=== PATIENT | female | born 1955 | race Caucasian/White ===

== ENCOUNTER 2017-02-09 10:00 | Outpatient (CLI) | payer OTHER ==
[~2017-02-09] VITALS: Ht 160 cm; Wt 74.5 kg
[~2017-02-09 10:00] MED LIST: BUS5 PO; CELE200C PO; HYD25 GTB; LAMO200T18 PO; LEVO75TA65 PO; LOSA50TA6 PO; OXYC5CAP17 PO; PARO40TA48 PO
[2017-02-09 10:15] VITALS: BP 120/75; PULSE 95; RESP 18; Ht 160 cm; Wt 74.5 kg
[2017-02-09] MEDS ORDERED: ARIP2TAB8 PO (10:36)
[2017-02-09] MEDS ORDERED: DICL50TA11 PO (10:36)
[2017-02-09] MEDS ORDERED: TERA2CAP3 PO (10:36)
[2017-02-09] MEDS ORDERED: CITA-104 PO (10:36)
[2017-02-09] MEDS ORDERED: TELM80TA4 PO (10:36)
--- NOTE | 2017-02-09 18:20 | CONS ---
[facility] INITIAL OUTPATIENT CONSULTATION NOTE DATE OF CONSULTATION: 02/09/2017 PLACE OF SERVICE: [facility] ASSESSMENT AND PLAN: A very pleasant but unfortunate 61-year-old lady with longstanding history of hepatitis C, who was also incidentally discovered to have a 1 cm gallbladder polyp, without any associated symptoms. Despite presence of hepatitis C, the size of the gallbladder polyp is small enough that I do not see any indication for acute surgical intervention. She will certainly have adequate followup for her hepatitis C and with those ultrasounds we can also monitor the size of this polyp. The literature is very clear that polyps less than 1 cm are extremely rare to transform into a malignancy. More than a 2 cm polyp would indicate surgical resection and the polyps between 1 and 2 cm are somewhat a candidate for either observation or surgical intervention. At this time, I do not believe that the patient requires surgery. I explained all the above in detail with the patient and answered all her questions to the best of my ability. I believe that she understood and agreed with the plans. With above assessment, I recommend the followin. Continued hepatitis C surveillance of liver with forwarding of the images of the new ultrasounds to my office for me to review, and I will ask my office to please keep the patient informed of any new decisions based on followup images. 2. She can follow up with us as needed. 3. Follow up with regular physician. 4. Stay in close contact with Dr. Carrion regarding her hepatitis C care. Thank you again for allowing us to participate in the care of this very pleasant lady and I am certain her wonderful family. If there are any questions , please feel free to contact me at [phone]. UPDATED CLINICAL SUMMARY: A very pleasant 61-year-old lady with a few comorbid issues including BMI 29.1 as well as chronic hepatitis C, presenting with incidentally discovered less than 1 cm gallbladder polyp. COMORBIDITIES: 1. Chronic hepatitis C diagnosed in 09/2016, but likely present since 1976 when she was told that she has non-A, non-B, hepatitis after blood transfusion. At that time, she had been hospitalized for pulmonary embolism and hematuria. In the , she was told that she has hepatitis C. Two liver biopsies were done, one in 1995 at [facility] and another one in 2005 at [facility]. In 2005, she was told that she has stage F1 or fibrosis 1 in her liver. Fibroscan done 12/02/2016 showed F0 to F1. In 11/2016, her AST and ALT were 50 and 52, respectively with a platelet count of 259. 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 3. Posttraumatic stress disorder. 4. Hypothyroidism. 5. Hypertension. 6. Depression. 7. Uncomplicated asthma. 8. Previous history of myocardial infarction. 9. Malignant neoplasm of the left breast, status post bilateral mastectomy in 2006, followed by chemotherapy and radiation complicated by lymphedema of left arm. 10. Arthritis with positive rheumatoid factor, C3 80 and C34 4 per rheumatology. 11. Several knee surgeries. 12. Appendectomy in 1974. 13. Abdominal hysterectomy 2007. 14. Vein stripping 2007. 15. AP repair in 2004. HISTORY OF PRESENT ILLNESS: The patient is a very pleasant 61-year-old lady with above-mentioned comorbidities, whom we were kindly asked to consult regarding management of her gallbladder polyp. She does not report any abdominal pain and this was incidentally discovered during the routine surveillance that she has for hepatitis C. She has never had any biliary complaints and no difficulties with admission to the hospital or emergency room that were pertaining to her gallbladder. Appetite has been good, and she does not report any changes in her bowel or bladder habits, changes in her weight, blood in the stool or urine or any other concerning signs. ALLERGIES: NO KNOWN DRUG ALLERGIES. HOME MEDICATIONS: Include: 1. Abilify. 2. BuSpar. 3. Citalopram. 4. Diclofenac. 5. Hydrochlorothiazide. 6. Levothyroxine. 7. Telmisartan. 8. Terazosin. SOCIAL HISTORY: The patient works in the nursing field. She has 4 children. She was born in [place], [place]. She is currently . She does not report any smoking. She drank heavily in 2007 for 2 years and then quit. No history of intravenous drug use. FAMILY HISTORY: The patient's mother is from malignant neoplasm of the colon. No family history of liver disease. REVIEW OF SYSTEMS: Other than the above-mentioned, there are no other pertinent positives or pertinent negatives in a complete 14-point review of systems. PHYSICAL EXAMINATION: GENERAL: The patient appears to be a very pleasant lady of non- descent, appearing stated age, sitting in a chair comfortably and in no acute distress. BMI is 29.1. VITAL SIGNS: Temperature 98.1, blood pressure 120/75, pulse 95, respiratory rate 18, pulse oximetry 97% on room air. HEENT: Normocephalic and atraumatic. Extraocular muscles and hearing are grossly intact bilaterally and symmetrically. Sclerae are nonicteric. Oral cavity is clear; oral mucosa appeared to be pink and moist. Dentition: fair to poor. NECK: Supple. There is no lymphadenopathy or JVD. There is no submental, submandibular or supraclavicular lymphadenopathy. CHEST: Rises symmetrically with each breath; patient is breathing comfortably. There are no audible wheezes, rales or rhonchi on the gross exam. HEART: Pulse is regular and palpable on the right wrist. Capillary refill was normal. Carotid pulses are palpable bilaterally and symmetrically in the neck. EXTREMITIES: Lower extremities contain no pitting edema around the ankles bilaterally and symmetrically. ABDOMEN: Abdomen is soft, nontender and nondistended. There are no peritoneal signs or guarding. No evidence of ascites, organomegaly, caput medusae, engorged subcutaneous veins, or other abnormalities. SKIN: Appears to be pink and feels warm to touch. NEUROLOGIC: Awake, alert, and follows commands appropriately. LABORATORY DATA: Dated 11/2016, normal electrolytes, CO2 of 31, albumin 4.0, platelets 259. Hepatitis B core antibody nonreactive, hepatitis B surface antibody reactive, hepatitis A antibody nonreactive, HIV test nonreactive, hepatitis C viral genotype 1A. IMAGING: The patient underwent an ultrasound of the abdomen and pelvis 2016 that showed a 1 cm gallbladder polyp. Note that I personally reviewed all the available pertinent images and I agree in general with their reported findings. Dictated By: MICHAEL ROBERTS/NTS Conf#: [id number] DID#: [id number] CC: NICO JIMENEZ MD; JOHN CARRION MD;*End* [facility]
== END 2017-02-09 16:42 | disposition home or self-care (01) ==
LOC: HPC 10:00
PROVIDERS: ATTEND Transplant Surgery
DX: K82.4 Cholesterolosis of gallbladder (principal); I10 Essential (primary) hypertension; E03.9 Hypothyroidism, unspecified; B19.20 Unspecified viral hepatitis C without hepatic coma; I25.2 Old myocardial infarction; F32.9 Major depressive disorder, single episode, unspecified; Z85.3 Personal history of malignant neoplasm of breast; Z90.13 Acquired absence of bilateral breasts and nipples
CPT/HCPCS: G0463

== ENCOUNTER 2017-07-23 14:49 | Inpatient (IN) | payer OTHER ==
[~2017-07-23] VITALS: Ht 160 cm; Wt 87.9 kg
[~2017-07-23 14:49] MED LIST changes: +ARIP2TAB8 PO; -CELE200C PO; +CITA-104 PO; +DICL50TA11 PO; -HYD25 GTB; +HYDR25TA6 PO; -LAMO200T18 PO; -LOSA50TA6 PO; -OXYC5CAP17 PO; -PARO40TA48 PO; +TELM80TA4 PO; +TERA2CAP3 PO
[2017-07-23 15:20] VITALS: BP 118/63; PULSE 86; RESP 18
[2017-07-23 15:39] VITALS: Ht 160 cm; Wt 87.9 kg
[2017-07-23] MEDS ORDERED: BISACODYL (EC) 5 MG TAB PO PRN (16:00)
[2017-07-23] MEDS ORDERED: BARIUM SULF 2% 450 ML BTL (BERRY SMOOTHIE) PO ONE (16:00)
[2017-07-23] MEDS ORDERED: LORAZEPAM 0.5 MG TAB PO PRN (16:00)
[2017-07-23] MEDS ORDERED: ONDANSETRON 4 MG INJ IV PRN (16:00)
[2017-07-23] MEDS ORDERED: ACETAMINOPHEN 325 MG TAB PO PRN (16:00)
[2017-07-23] MEDS ORDERED: hydrALAzine 20 MG INJ IV PRN (16:00)
[2017-07-23] MEDS ORDERED: CEFTRIAXONE 1 GM/50 ML (PMX) 50 ML IVPB SCH (16:00)
[2017-07-23] MEDS ORDERED: NACL 0.9% 3 ML SYG IV SCH (16:00)
[2017-07-23] MEDS ORDERED: HYDROCODONE/APAP (5/325) TAB PO PRN (16:00)
--- NOTE | 2017-07-23 16:20 | HP ---
Date/Time of Note Date/Time of Note DATE: 07/23/17 TIME: 16:14 Assessment/Plan VTE Prophylaxis VTE Prophylaxis Intervention: SCD's Assessment/Plan Chief Complaint/Hosp Course o: Physical exam General: Patient is laying in bed and answers questions appropriately Mentation: Patient is alert and oriented 4, Head: Normocephalic atraumatic Eyes: EOMI, pupils reactive to light Neck: Supple, nontender, midline Respiratory: Clear to auscultation bilaterally Cardiovascular: regular rate, no obvious murmurs Gastrointestinal: non-tender to palpation, bowel sounds heard. mildly distended Neurological: Moves all extremities spontaneously Skin: No new skin lesions Patient is a 62-year-old female with a past medical history of PTSD and depression as well as Deja-Danlos who presented at another facility with hyponatremia after becoming nausea vomiting secondary to Bactrim Keflex and ministration Assessment and plan Hyponatremia -Stat repeat labs, outside facility had sodium of 122, will repeat labs and if low will slowly replete, -Side effect of Bactrim is hyponatremia, however cannot rule out other causes -We will order urine studies for hyponatremia in anticipation of low-sodium -If patient's sodium less than 125, upgrade to telemetry Weakness -Likely secondary to repeated diarrhea and nausea and GI issues likely secondary to hyponatremia -Monitor, PT OT Nausea vomiting -Questionable GI infectious source versus Bactrim side effect -Zofran as needed -Antibiotics for questionable GI issues Abdominal distention -Questionable related to GI infectious source -CT scan ordered PTSD and depression -Restart home medications Hypertension -Continue patient's blood pressure medication and as needed medications -Hydrochlorothiazide has electrolyte abnormalities including hyponatremia, will change to amlodipine, however will slowly titrate up. Problems: HPI/ROS Admit Date/Time Admit Date/Time Jul 23, 2017 at 14:56 Hx of Present Illness Patient is a 62-year-old female with past medical history of Deja- Danlos, PTSD with depression and hypothyroidism who presents to [facility] as a transfer from another facility where she originally presented 5 days ago in the ED with a vaginal abscess which was drained and patient was put on Bactrim and Keflex. Immediately after patient filled her Bactrim she began to feel nauseated and had muscle weakness and stiffness. Patient felt increasingly worse and return to the ED and was subsequently found to be hyponatremic at 122 at the other facility and was transferred over to [facility] due to insurance reasons. Currently at [facility] patient is alert and oriented 4, however mildly confused at times due to recent Benadryl and Dilaudid administration. Patient is a good historian and is able to explain all her symptoms and issues. Patient still complains of mild stomach distention as well as diarrhea and overall weakness. Patient denies chest pain, headache, shortness of breath. PMH: PTSD, depression, hypothyroidism, chronic pain, chronic bradycardia, deja danlos, hypertension, history of breast cancer, questionable asthma Meds: Abilify, BuSpar, citalopram, hydrochlorothiazide, levothyroxine, telmisartan, terazosin Exam/Review of Systems Vital Signs Vitals Vital Signs Date Time Temp Pulse Resp B/P Pulse Ox O2 Delivery O2 Flow Rate FiO2 07/23/17 15:20 98.9 86 18 118/63 97 Room Air NICO ARGUETA Jul 23, 2017 16:20
[2017-07-23 16:41] LABS: BASOPHILS % 0.5 % (0.0-2.0); EOSINOPHILS # 0.1 10^3/ul (0.0-0.5); EOSINOPHILS % 2.4 % (0.0-7.0); HEMATOCRIT 30.3 % (37.0-47.0); HEMOGLOBIN 10.8 g/dl (12.0-16.0); LYMPHOCYTES % 25.4 % (15.0-51.0); MEAN CORPUSCULAR HEMOGLOBIN 30.4 pg (29.0-33.0); MEAN CORPUSCULAR HGB CONC 35.6 g/dl (32.0-37.0); MEAN CORPUSCULAR VOLUME 85.4 fl (82.0-101.0); MEAN PLATELET VOLUME 9.6 fl (7.4-10.4); MONOCYTE # 0.5 10^3/ul (0.3-0.9); NEUTROPHIL # 2.2 10^3/ul (1.6-7.5); NEUTROPHILS % 58.4 % (39.0-77.0); PLATELET COUNT 165 10^3/UL (140-415); RED BLOOD COUNT 3.55 10^6/ul (4.20-5.40); RED CELL DISTRIBUTION WIDTH 11.6 % (11.5-14.5); WHITE BLOOD COUNT 3.8 10^3/ul (4.8-10.8)
[2017-07-23] MEDS: oxyCODONE 5 MG TAB PO PRN ×2 (17:01→21:14)
[2017-07-23 17:10] LABS: ALBUMIN 3.8 g/dl (3.3-4.9); ALBUMIN/GLOBULIN RATIO 1.31; BILIRUBIN,INDIRECT 0.4 mg/dl (0-1.1); BILIRUBIN,TOTAL 0.4 mg/dl (0.2-1.3); CALCIUM 8.5 mg/dl (8.4-10.2); CREATININE 0.95 mg/dl (0.44-1.00); POTASSIUM 3.8 mmol/L (3.5-5.1); TOTAL PROTEIN 6.7 g/dl (6.1-8.1)
[2017-07-23] MEDS: SOD CHLORIDE 0.9% 1,000 ML IV SCH (18:29)
[2017-07-23 19:39] VITALS: BP 107/65; RESP 22
[2017-07-23] MEDS: morphine 2 MG INJ IV PRN (19:43)
[2017-07-23] MEDS ORDERED: BUSPIRONE 10 MG TAB PO SCH (21:00)
[2017-07-23] MEDS ORDERED: TERAZOSIN 2 MG CAP PO SCH (21:00)
[2017-07-23] MEDS: BUSPIRONE 5 MG TAB PO SCH (21:08)
[2017-07-24 01:59] LABS: ALBUMIN 3.5 g/dl (3.3-4.9); CALCIUM 8.4 mg/dl (8.4-10.2); CREATININE 0.91 mg/dl (0.44-1.00); PHOSPHORUS 2.7 mg/dl (2.5-4.9)
[2017-07-24 02:00] VITALS: BP 139/74; RESP 20
[2017-07-24] MEDS: morphine 2 MG INJ IV PRN ×4 (02:14→22:02)
[2017-07-24 03:07] LABS: ADD UMIC NO; UR ASCORBIC ACID NEGATIVE (NEGATIVE); UR BILIRUBIN (Dip) NEGATIVE (NEGATIVE); UR BLOOD (Dip) NEGATIVE (NEGATIVE); UR CLARITY CLEAR (CLEAR); UR COLOR STRAW (YELLOW); UR GLUCOSE (Dip) NEGATIVE (NEGATIVE); UR KETONES (Dip) NEGATIVE (NEGATIVE); UR LEUKOCYTE ESTERASE (Dip) NEGATIVE Leu/ul (NEGATIVE); UR NITRITE (Dip) NEGATIVE (NEGATIVE); UR SPECIFIC GRAVITY (Dip) 1.003 (1.003-1.030); UR TOTAL PROTEIN (Dip) NEGATIVE (NEGATIVE); UR UROBILINOGEN (Dip) NEGATIVE (NEGATIVE)
[2017-07-24 03:21] LABS: OPIATES Negative (NEGATIVE)
[2017-07-24 03:29] LABS: POTASSIUM,URINE RANDOM < 9.7 mmol/L (25-125)
[2017-07-24 03:30] LABS: BARBITURATES Negative (NEGATIVE); BENZODIAZEPINES Negative (NEGATIVE); CANNABINOIDS Negative (NEGATIVE); COCAINE Negative (NEGATIVE)
[2017-07-24] MEDS: PANTOPRAZOLE (EC) 40 MG TAB PO SCH (05:36)
[2017-07-24] MEDS: LEVOTHYROXINE 75 MCG TAB PO SCH (05:36)
[2017-07-24 05:43] LABS: BASOPHILS % 0.7 % (0.0-2.0); EOSINOPHILS # 0.1 10^3/ul (0.0-0.5); EOSINOPHILS % 4.6 % (0.0-7.0); HEMATOCRIT 30.5 % (37.0-47.0); HEMOGLOBIN 10.7 g/dl (12.0-16.0); LYMPHOCYTES # 0.9 10^3/ul (0.8-2.9); LYMPHOCYTES % 30.8 % (15.0-51.0); MEAN CORPUSCULAR HEMOGLOBIN 30.3 pg (29.0-33.0); MEAN CORPUSCULAR HGB CONC 35.1 g/dl (32.0-37.0); MEAN CORPUSCULAR VOLUME 86.4 fl (82.0-101.0); MONOCYTE # 0.4 10^3/ul (0.3-0.9); MONOCYTES % 13.6 % (0.0-11.0); NEUTROPHIL # 1.5 10^3/ul (1.6-7.5); PLATELET COUNT 171 10^3/UL (140-415); RED BLOOD COUNT 3.53 10^6/ul (4.20-5.40); RED CELL DISTRIBUTION WIDTH 11.7 % (11.5-14.5)
[2017-07-24 06:01] LABS: IRON 116 ug/dl (35-150)
[2017-07-24 06:07] LABS: ALBUMIN 3.3 g/dl (3.3-4.9); CALCIUM 8.6 mg/dl (8.4-10.2); CREATININE 0.89 mg/dl (0.44-1.00); PHOSPHORUS 2.5 mg/dl (2.5-4.9); POTASSIUM 4.1 mmol/L (3.5-5.1)
[2017-07-24 06:11] LABS: ALBUMIN 3.3 g/dl (3.3-4.9); ALBUMIN/GLOBULIN RATIO 1.1; BILIRUBIN,INDIRECT 0.4 mg/dl (0-1.1); BILIRUBIN,TOTAL 0.4 mg/dl (0.2-1.3); CALCIUM 8.6 mg/dl (8.4-10.2); CREATININE 0.91 mg/dl (0.44-1.00); MAGNESIUM 1.4 mg/dl (1.7-2.5); TOTAL IRON BINDING CAPACITY 297 ug/dl (241-421); TOTAL PROTEIN 6.3 g/dl (6.1-8.1)
[2017-07-24 07:57] VITALS: BP 111/66; RESP 18
[2017-07-24] MEDS ORDERED: ARIPIPRAZOLE 2 MG TAB PO SCH ×3 (08:00→21:00)
[2017-07-24] MEDS: BUSPIRONE 5 MG TAB PO SCH ×2 (08:14→21:15)
[2017-07-24] MEDS: TERAZOSIN 2 MG CAP PO SCH ×2 (08:14→21:15)
[2017-07-24] MEDS: CITALOPRAM 20 MG TAB PO SCH (08:14)
[2017-07-24] MEDS: LOSARTAN 50 MG TAB PO SCH (08:15)
[2017-07-24] MEDS ORDERED: MAGNESIUM SULFATE 3 GM in DEXTROSE 5% 100 ML IVPB ONE (09:00)
--- NOTE | 2017-07-24 09:23 | RADRPT ---
PROCEDURE: CT abdomen and pelvis without contrast. CLINICAL INDICATION: Abdominal distension, nausea, vomiting, diarrhea, abdominal pressure TECHNIQUE: CT of the abdomen and pelvis without intravenous contrast was performed on a multidetect or CT scanner, with multiplanar reformats. Oral contrast was administered only. One or more of the following dose reduction techniques were used: Automated exposure control, adjustment in mA and / or kV according to patient size, use of iterative reconstructive technique. CTDIvol = 15 mGy and DLP = 844 mGy-cm. DICOM images are available. COMPARISON: None available FINDINGS: There is a small to moderate hiatal hernia. The liver, gallbladder, spleen, pancreas, adrenal glands and kidneys appear unremarkable on this non contrast evaluation. No biliary dilation is seen. The uterus is not visualized compatible with hysterectomy. Clips are present in the right pelvis. Ur inary bladder appears unremarkable. No free air, significant free fluid or focal fluid collection is identified in the abdomen or pelvis . Small and large bowel loops appear unremarkable. The appendix is not visualized. No findings of appendicitis are identified. No abdominal or pelvic lymphadenopathy is seen. The abdominal aorta is normal in caliber. Atheroscl erotic calcifications are noted. Spondylosis with grade 1 anterolisthesis at L4-5, and chronic lower bilateral rib fractures are note d. IMPRESSION: 1. No acute abnormality identified in the abdomen or pelvis. 2. Small moderate hiatal hernia. 3. Status post hysterectomy. RPTAT: HH .Harvey Contreras MD, MD Date Time Electronically viewed and signed by .Harvey Contreras MD, on 07/24/2017 09:22 .O/
[2017-07-24] MEDS ORDERED: MAGNESIUM SULFATE 2 GM/50 ML 50 ML IVPB ONE (10:30)
--- NOTE | 2017-07-24 11:15 | PN ---
Date/Time of Note Date/Time of Note DATE: 07/24/17 TIME: 11:09 Assessment/Plan VTE Prophylaxis VTE Prophylaxis Intervention: ambulation, SCD's Lines/Catheters IV Catheter Type (from Nrsg): Peripheral IV Urinary Cath still in place: No Assessment/Plan Chief Complaint/Hosp Course s: 07.24 patient not confused at all, sitter unncessary, still has mod-severe soreness/strain in her upper thigh o: Physical exam General: Patient is laying in bed and answers questions appropriately Mentation: Patient is alert and oriented 4, Head: Normocephalic atraumatic Eyes: EOMI, pupils reactive to light Neck: Supple, nontender, midline Respiratory: Clear to auscultation bilaterally Cardiovascular: regular rate, no obvious murmurs Gastrointestinal: non-tender to palpation, bowel sounds heard. mildly distended Neurological: Moves all extremities spontaneously Skin: No new skin lesions Patient is a 62-year-old female with a past medical history of PTSD and depression as well as Deja-Danlos who presented at another facility with hyponatremia after becoming nausea vomiting secondary to Bactrim Keflex and ministration Assessment and plan Hyponatremia -improving at a good rate, 122 at outside facility to 130 this AM, safe limits -slow hydration -bactrim still likely cause, combined with other meds such as HCTZ, holding HCTZ as well, patient's BP is well controlled and patient was taking HCTZ for chronic lymphedema, which has not helped, no need to HCTZ. Weakness -Likely secondary to repeated diarrhea and nausea and GI issues likely secondary to hyponatremia -Monitor, PT OT Muscle soreness/strain -upper thigh -possibly secondary to multiple days of distress -monitor and will try robaxin Nausea vomiting -Questionable GI infectious source versus Bactrim side effect -Zofran as needed -Antibiotics given initially, but stopped IV ceftriaxone, PO meds labial abscess -s/p I and D, was on bactrim/keflex -switching to doxycycline oral due to possible bactrim side effects Abdominal distention -Questionable related to GI infectious source -very mild distention -hiatal hernia noted on CT, otherwise unremarkable -monitor PTSD and depression -Restart home medications Hypertension -Continue patient's blood pressure medication and as needed medications -Hydrochlorothiazide will be dc'd. electrolyte issues as well as patient not using it for BP issues DISPO -PT/OT to eval difficulty walking 2/2 leg strain/pain -monitor if robaxin helping -monitor Na -DC to f/u with family med/front desk coordinator onc for drained labial abscess Problems: Exam/Review of Systems Vital Signs Vitals Vital Signs Date Time Temp Pulse Resp B/P Pulse Ox O2 Delivery O2 Flow Rate FiO2 07/24/17 07:57 98.0 74 18 111/66 96 07/23/17 15:20 Room Air Intake and Output 07/23/17 07/23/17 07/24/17 14:59 22:59 06:59 Intake Total 400 ml 440 ml Balance 400 ml 440 ml Results Result Diagram: 07/24/17 0443 07/24/17 0443 Results 24 hrs Laboratory Tests Test 07/23/17 16:30 07/23/17 16:32 07/23/17 17:20 07/24/17 00:40 Sodium Level 125 L 127 L Potassium Level 3.8 4.0 Chloride Level 95 L 96 L Carbon Dioxide Level 19 L 23 Anion Gap 15 12 Blood Urea Nitrogen 8 6 L Creatinine 0.95 0.91 Glucose Level 77 85 Osmolality 254 L Calcium Level 8.5 8.4 Total Bilirubin 0.4 Direct Bilirubin 0.00 Indirect Bilirubin 0.4 Aspartate Amino Transf (AST/SGOT) 54 H Alanine Aminotransferase (ALT/SGPT) 58 Alkaline Phosphatase 50 Total Protein 6.7 Albumin 3.8 3.5 Globulin 2.90 Albumin/Globulin Ratio 1.31 White Blood Count 3.8 L Red Blood Count 3.55 L Hemoglobin 10.8 L Hematocrit 30.3 L Mean Corpuscular Volume 85.4 Mean Corpuscular Hemoglobin 30.4 Mean Corpuscular Hemoglobin Concent 35.6 Red Cell Distribution Width 11.6 Platelet Count 165 Mean Platelet Volume 9.6 Neutrophils % 58.4 Lymphocytes % 25.4 Monocytes % 13.0 H Eosinophils % 2.4 Basophils % 0.5 Nucleated Red Blood Cells % 0.0 Neutrophils # 2.2 Lymphocytes # 1.0 Monocytes # 0.5 Eosinophils # 0.1 Basophils # 0.0 Nucleated Red Blood Cells # 0.0 Urine Color STRAW Urine Clarity CLEAR Urine pH 7.0 Urine Specific Geismar 1.003 Urine Ketones NEGATIVE Urine Nitrite NEGATIVE Urine Bilirubin NEGATIVE Urine Urobilinogen NEGATIVE Urine Leukocyte Esterase NEGATIVE Urine Hemoglobin NEGATIVE Urine Osmolality 126 L Urine Random Creatinine 23.28 Urine Random Sodium 41 Urine Random Potassium < 9.7 L Urine Glucose NEGATIVE Urine Total Protein NEGATIVE Urine Opiates Screen Negative Urine Barbiturates Negative Urine Amphetamines Screen Negative Urine Benzodiazepines Screen Negative Urine Cocaine Screen Negative Urine Cannabinoids Negative Phosphorus Level 2.7 Test 07/24/17 04:43 White Blood Count 3.0 #L Red Blood Count 3.53 L Hemoglobin 10.7 L Hematocrit 30.5 L Mean Corpuscular Volume 86.4 Mean Corpuscular Hemoglobin 30.3 Mean Corpuscular Hemoglobin Concent 35.1 Red Cell Distribution Width 11.7 Platelet Count 171 Mean Platelet Volume 10.0 Neutrophils % 50.0 Lymphocytes % 30.8 Monocytes % 13.6 H Eosinophils % 4.6 Basophils % 0.7 Nucleated Red Blood Cells % 0.0 Neutrophils # 1.5 L Lymphocytes # 0.9 Monocytes # 0.4 Eosinophils # 0.1 Basophils # 0.0 Nucleated Red Blood Cells # 0.0 Sodium Level 130 L Potassium Level 4.0 Chloride Level 97 Carbon Dioxide Level 27 Anion Gap 10 Blood Urea Nitrogen 6 L Creatinine 0.91 Glucose Level 79 Calcium Level 8.6 Phosphorus Level 2.5 Magnesium Level 1.4 L Iron Level 116 Total Iron Binding Capacity 297 Percent Iron Saturation 39 Ferritin 121.0 Total Bilirubin 0.4 Direct Bilirubin 0.00 Indirect Bilirubin 0.4 Aspartate Amino Transf (AST/SGOT) 60 H Alanine Aminotransferase (ALT/SGPT) 72 H Alkaline Phosphatase 44 Total Protein 6.3 Albumin 3.3 Globulin 3.00 Albumin/Globulin Ratio 1.10 Medications Medications Current Medications Lorazepam (Ativan) 0.5 mg Q8H PRN PO ANXIETY; Start 07/23/17 at 16:00 Ondansetron HCl (Zofran Inj) 4 mg Q6H PRN IV NAUSEA AND/OR VOMITING; Start at 16:00 Acetaminophen (Tylenol Tab) 650 mg Q6H PRN PO PAIN LEVEL 1-3 OR FEVER Last administered on 07/23/17 21:14; Admin Dose 650 MG; Start 07/23/17 at 16:00 Morphine Sulfate (morphine) 2 mg Q4H PRN IV PAIN LEVEL 7-10 Last administered on 07/24/17 06:47; Admin Dose 2 MG; Start 07/23/17 at 16:00 Bisacodyl (Dulcolax) 5 mg DAILY PRN PO CONSTIPATION; Start 07/23/17 at 16:00 Pantoprazole (Protonix Tab) 40 mg DAILY@06 PO Last administered on 07/24/17 05:36; Admin Dose 40 MG; Start 07/24/17 at 06:00 Citalopram Hydrobromide (Celexa) 40 mg DAILY PO Last administered on 08:14; Admin Dose 40 MG; Start 07/24/17 at 09:00 Levothyroxine Sodium (Synthroid) 75 mcg DAILY@06 PO Last administered on 05:36; Admin Dose 75 MCG; Start 07/24/17 at 06:00 Losartan Potassium (Cozaar) 100 mg DAILY PO Last administered on 07/24/17 08: 15; Admin Dose 100 MG; Start 07/24/17 at 09:00 Hydralazine HCl (Apresoline) 10 mg Q4H PRN IV sbp>160; Start 07/23/17 at 16:00 Oxycodone HCl (Roxicodone) 5 mg Q4H PRN PO PAIN Last administered on 21:14; Admin Dose 5 MG; Start 07/23/17 at 17:00 Buspirone HCl 7.5 mg 7.5 mg BID PO Last administered on 07/24/17 08:14; Admin Dose 7.5 MG; Start 07/23/17 at 21:00 Sodium Chloride (NS) 1,000 ml @ 40 mls/hr Q24H IV Last administered on 18:29; Admin Dose 40 MLS/HR; Start 07/23/17 at 18:30 Aripiprazole (Abilify) 2 mg QHS PO ; Start 07/24/17 at 21:00 Terazosin HCl (Hytrin) 2 mg BID PO Last administered on 07/24/17 08:14; Admin Dose 2 MG; Start 07/24/17 at 09:00 Aripiprazole 2 mg 2 mg ONCE PO Last administered on 07/24/17 08:14; Admin Dose 2 MG; Start 07/24/17 at 08:00; Stop 07/24/17 at 13:00 Magnesium Sulfate/ Dextrose (Magnesium Sulfate/D5W) 106 ml @ 35.333 mls/ hr ONCE ONCE IVPB Last administered on 11/26/17at 09:18; Admin Dose 35.333 MLS/HR ; Start 07/24/17 at 09:00; Stop 07/24/17 at 11:59 Methocarbamol (Robaxin) 1,500 mg TID PO ; Start 07/24/17 at 13:00 NICO ARGUETA Jul 24, 2017 11:15
[2017-07-24] MEDS: DOXYCYCLINE 100 MG TAB PO SCH ×2 (12:10→21:08)
[2017-07-24] MEDS: METHOCARBAMOL 750 MG TAB PO SCH ×2 (12:10→21:08)
--- NOTE | 2017-07-24 12:24 | RADRPT ---
PROCEDURE: XR Chest. CLINICAL INDICATION: Hypoxia. TECHNIQUE: Single frontal view. COMPARISON: None. FINDINGS: The lungs are clear. The heart size is normal. There is calcification in the aorta consistent with atherosclerosis. There is no pleural effusion or pneumothorax. Surgical clips are present in the left axilla. IMPRESSION: 1. Atherosclerosis. 2. Prior left axillary surgery. 3. Otherwise unremarkable chest radiograph. 4. Previously noted right basilar air space disease and small right apical pneumothorax are no long er present. RPTAT: QQ .Gaudencio Springer MD, MD Date Time Electronically viewed and signed by .Gaudencio Springer MD, MD on 07/24/2017 12:24 .R/
[2017-07-24] MEDS ORDERED: DICLOFENAC (EC) 25 MG TAB PO PRN (13:00)
[2017-07-24 14:59] LABS: ALBUMIN 3.3 g/dl (3.3-4.9); CALCIUM 8.9 mg/dl (8.4-10.2); CREATININE 0.9 mg/dl (0.44-1.00); PHOSPHORUS 2.8 mg/dl (2.5-4.9); POTASSIUM 4.9 mmol/L (3.5-5.1)
[2017-07-24] MEDS: SOD CHLORIDE 0.9% 1,000 ML IV SCH ×2 (18:12→21:00)
[2017-07-24 20:27] VITALS: BP 100/51; RESP 18
[2017-07-25] MEDS: morphine 2 MG INJ IV PRN ×3 (01:22→11:30)
[2017-07-25 02:24] VITALS: BP 101/53; RESP 18
[2017-07-25 05:35] LABS: BASOPHILS % 0.6 % (0.0-2.0); EOSINOPHILS # 0.1 10^3/ul (0.0-0.5); EOSINOPHILS % 3.6 % (0.0-7.0); HEMATOCRIT 32.4 % (37.0-47.0); HEMOGLOBIN 11.2 g/dl (12.0-16.0); LYMPHOCYTES # 0.9 10^3/ul (0.8-2.9); LYMPHOCYTES % 26.4 % (15.0-51.0); MEAN CORPUSCULAR HEMOGLOBIN 30.4 pg (29.0-33.0); MEAN CORPUSCULAR HGB CONC 34.6 g/dl (32.0-37.0); MEAN PLATELET VOLUME 9.6 fl (7.4-10.4); MONOCYTE # 0.4 10^3/ul (0.3-0.9); MONOCYTES % 11.7 % (0.0-11.0); NEUTROPHIL # 1.9 10^3/ul (1.6-7.5); NEUTROPHILS % 57.4 % (39.0-77.0); PLATELET COUNT 183 10^3/UL (140-415); RED BLOOD COUNT 3.68 10^6/ul (4.20-5.40); RED CELL DISTRIBUTION WIDTH 12.1 % (11.5-14.5); WHITE BLOOD COUNT 3.3 10^3/ul (4.8-10.8)
[2017-07-25] MEDS: PANTOPRAZOLE (EC) 40 MG TAB PO SCH (05:56)
[2017-07-25] MEDS: LEVOTHYROXINE 75 MCG TAB PO SCH (05:56)
[2017-07-25 06:04] LABS: CALCIUM 8.6 mg/dl (8.4-10.2); CREATININE 0.83 mg/dl (0.44-1.00); MAGNESIUM 2.2 mg/dl (1.7-2.5); PHOSPHORUS 2.8 mg/dl (2.5-4.9); POTASSIUM 4.7 mmol/L (3.5-5.1)
[2017-07-25 07:30] VITALS: BP 122/69; RESP 20
[2017-07-25] MEDS: METHOCARBAMOL 750 MG TAB PO SCH ×2 (08:42→12:11)
[2017-07-25] MEDS: DOXYCYCLINE 100 MG TAB PO SCH (08:42)
[2017-07-25] MEDS: BUSPIRONE 5 MG TAB PO SCH (08:42)
[2017-07-25] MEDS: CITALOPRAM 20 MG TAB PO SCH (08:43)
[2017-07-25] MEDS: LOSARTAN 50 MG TAB PO SCH (08:43)
[2017-07-25] MEDS: TERAZOSIN 2 MG CAP PO SCH (08:43)
[2017-07-25] MEDS: oxyCODONE 5 MG TAB PO PRN (10:24)
--- NOTE | 2017-07-25 10:30 | PN ---
Date/Time of Note Date/Time of Note DATE: 07/25/17 TIME: 10:30 Assessment/Plan VTE Prophylaxis VTE Prophylaxis Intervention: SCD's Lines/Catheters IV Catheter Type (from Nrsg): Peripheral IV Urinary Cath still in place: No Assessment/Plan Assessment/Plan 1. Hyponatremia - sodium level at normal limits this am, 136 -bactrim still likely cause, combined with other meds such as HCTZ, holding HCTZ as well, patient's BP is well controlled and patient was taking HCTZ for chronic lymphedema, which has not helped, no need to HCTZ. 2. Weakness -Likely secondary to repeated diarrhea and nausea and GI issues likely secondary to hyponatremia - Walked with PT and stable with no issues. no further needs required 3. Muscle soreness/strain- improving - possibly secondary to multiple days of distress - no need for robaxin upon discharge 4. Nausea with vomiting- resolved -Questionable GI infectious source versus Bactrim side effect -Zofran as needed 5. labial abscess - s/p I and D, was on bactrim/keflex - switching to doxycycline oral due to possible bactrim side effects - Will need to follow up with on site coordinator after discharge 6. Abdominal distention- improved -Questionable related to GI infectious source -hiatal hernia noted on CT, otherwise unremarkable -monitor 7. PTSD and depression- stable - continue home medications 8. Hypertension - Continue patient's blood pressure medication and as needed medications - will d/c hctz upon discharge 9. Disposition - Medically stable for discharge home today Subjective 24 Hr Interval Summary Free Text/Dictation Patient doing well and walked with no issues with physical therapy. States muscle discomfort has improved but Robaxin is not helping. Denies any new complaints and no acute overnight events. Exam/Review of Systems Vital Signs Vitals Vital Signs Date Time Temp Pulse Resp B/P Pulse Ox O2 Delivery O2 Flow Rate FiO2 07/25/17 07:30 98.3 61 20 122/69 98 07/23/17 15:20 Room Air Intake and Output 07/24/17 07/24/17 07/25/17 15:00 23:00 07:00 Intake Total 106 ml 1040 ml 750 ml Output Total 750 ml Balance 106 ml 1040 ml 0 ml Exam General: Patient is laying in bed and answers questions appropriately Mentation: Patient is alert and oriented 4, Head: Normocephalic atraumatic Neck: Supple, nontender, midline Respiratory: Clear to auscultation bilaterally Cardiovascular: regular rate and rhythm, no obvious murmurs Gastrointestinal: non-tender to palpation, bowel sounds heard. no rebound or guarding Neurological: Moves all extremities spontaneously Results Result Diagram: 07/25/17 0500 07/25/17 0448 Results 24 hrs Laboratory Tests Test 07/24/17 14:08 07/25/17 04:48 07/25/17 05:00 Sodium Level 131 L 136 Potassium Level 4.9 4.7 Chloride Level 99 104 Carbon Dioxide Level 27 24 Anion Gap 10 13 Blood Urea Nitrogen 7 9 Creatinine 0.90 0.83 Glucose Level 80 85 Calcium Level 8.9 8.6 Phosphorus Level 2.8 2.8 Albumin 3.3 Magnesium Level 2.2 White Blood Count 3.3 L Red Blood Count 3.68 L Hemoglobin 11.2 L Hematocrit 32.4 L Mean Corpuscular Volume 88.0 Mean Corpuscular Hemoglobin 30.4 Mean Corpuscular Hemoglobin Concent 34.6 Red Cell Distribution Width 12.1 Platelet Count 183 Mean Platelet Volume 9.6 Neutrophils % 57.4 Lymphocytes % 26.4 Monocytes % 11.7 H Eosinophils % 3.6 Basophils % 0.6 Nucleated Red Blood Cells % 0.0 Neutrophils # 1.9 Lymphocytes # 0.9 Monocytes # 0.4 Eosinophils # 0.1 Basophils # 0.0 Nucleated Red Blood Cells # 0.0 Medications Medications Current Medications Lorazepam (Ativan) 0.5 mg Q8H PRN PO ANXIETY; Start 07/23/17 at 16:00 Ondansetron HCl (Zofran Inj) 4 mg Q6H PRN IV NAUSEA AND/OR VOMITING; Start at 16:00 Acetaminophen (Tylenol Tab) 650 mg Q6H PRN PO PAIN LEVEL 1-3 OR FEVER Last administered on 07/23/17 21:14; Admin Dose 650 MG; Start 07/23/17 at 16:00 Morphine Sulfate (morphine) 2 mg Q4H PRN IV PAIN LEVEL 7-10 Last administered on 07/25/17 06:52; Admin Dose 2 MG; Start 07/23/17 at 16:00 Bisacodyl (Dulcolax) 5 mg DAILY PRN PO CONSTIPATION; Start 07/23/17 at 16:00 Pantoprazole (Protonix Tab) 40 mg DAILY@06 PO Last administered on 07/25/17 05:56; Admin Dose 40 MG; Start 07/24/17 at 06:00 Citalopram Hydrobromide (Celexa) 40 mg DAILY PO Last administered on 08:43; Admin Dose 40 MG; Start 07/24/17 at 09:00 Levothyroxine Sodium (Synthroid) 75 mcg DAILY@06 PO Last administered on 05:56; Admin Dose 75 MCG; Start 07/24/17 at 06:00 Losartan Potassium (Cozaar) 100 mg DAILY PO Last administered on 07/25/17 08: 43; Admin Dose 100 MG; Start 07/24/17 at 09:00 Hydralazine HCl (Apresoline) 10 mg Q4H PRN IV sbp>160; Start 07/23/17 at 16:00 Oxycodone HCl (Roxicodone) 5 mg Q4H PRN PO PAIN Last administered on 10:24; Admin Dose 5 MG; Start 07/23/17 at 17:00 Buspirone HCl 7.5 mg 7.5 mg BID PO Last administered on 07/25/17 08:42; Admin Dose 7.5 MG; Start 07/23/17 at 21:00 Sodium Chloride (NS) 1,000 ml @ 40 mls/hr Q24H IV Last administered on 21:00; Admin Dose 40 MLS/HR; Start 07/23/17 at 18:30 Aripiprazole (Abilify) 2 mg QHS PO Last administered on 07/24/17 21:08; Admin Dose 2 MG; Start 07/24/17 at 21:00 Terazosin HCl (Hytrin) 2 mg BID PO Last administered on 07/25/17 08:43; Admin Dose 2 MG; Start 07/24/17 at 09:00 Methocarbamol (Robaxin) 1,500 mg TID PO Last administered on 07/25/17 08:42; Admin Dose 1,500 MG; Start 07/24/17 at 13:00 Doxycycline Hyclate (Vibramycin) 100 mg BID PO Last administered on 07/25/17 08:42; Admin Dose 100 MG; Start 07/24/17 at 11:30 Diclofenac Sodium (Voltaren) 50 mg BID PRN PO pain; Start 07/24/17 at 13:00 CALEB LARA MD Jul 25, 2017 10:30
[2017-07-25] MEDS ORDERED: DOXY100T2 PO (12:02)
--- NOTE | 2017-07-25 12:07 | DS ---
Date/Time of Note Date/Time of Note DATE: 07/25/17 TIME: 12:07 Discharge Summary Admission/Discharge Info Admit Date/Time Jul 24, 2017 at 10:08 Discharge Date/Time Discharge Diagnosis Hyponatremia Weakness Muscle soreness/strain- improved Nausea vomiting- resolved labial abscess Abdominal distention PTSD and depression Hypertension Patient Condition: Good Procedures PROCEDURE: CT abdomen and pelvis without contrast. CLINICAL INDICATION: Abdominal distension, nausea, vomiting, diarrhea, abdominal pressure TECHNIQUE: CT of the abdomen and pelvis without intravenous contrast was performed on a multidetector CT scanner, with multiplanar reformats. Oral contrast was administered only. One or more of the following dose reduction techniques were used: Automated exposure control, adjustment in mA and / or kV according to patient size, use of iterative reconstructive technique. CTDIvol = 15 mGy and DLP = 844 mGy-cm. DICOM images are available. COMPARISON: None available FINDINGS: There is a small to moderate hiatal hernia. The liver, gallbladder, spleen, pancreas, adrenal glands and kidneys appear unremarkable on this noncontrast evaluation. No biliary dilation is seen. The uterus is not visualized compatible with hysterectomy. Clips are present in the right pelvis. Urinary bladder appears unremarkable. No free air, significant free fluid or focal fluid collection is identified in the abdomen or pelvis. Small and large bowel loops appear unremarkable. The appendix is not visualized. No findings of appendicitis are identified. No abdominal or pelvic lymphadenopathy is seen. The abdominal aorta is normal in caliber. Atherosclerotic calcifications are noted. Spondylosis with grade 1 anterolisthesis at L4-5, and chronic lower bilateral rib fractures are noted. IMPRESSION: 1. No acute abnormality identified in the abdomen or pelvis. 2. Small moderate hiatal hernia. 3. Status post hysterectomy. Hx of Present Illness Patient is a 62-year-old female with past medical history of Deja- Danlos, PTSD with depression and hypothyroidism who presents to [facility] as a transfer from another facility where she originally presented 5 days ago in the ED with a vaginal abscess which was drained and patient was put on Bactrim and Keflex. Immediately after patient filled her Bactrim she began to feel nauseated and had muscle weakness and stiffness. Patient felt increasingly worse and return to the ED and was subsequently found to be hyponatremic at 122 at the other facility and was transferred over to [facility] due to insurance reasons. Currently at [facility] patient is alert and oriented 4, however mildly confused at times due to recent Benadryl and Dilaudid administration. Patient is a good historian and is able to explain all her symptoms and issues. Patient still complains of mild stomach distention as well as diarrhea and overall weakness. Patient denies chest pain, headache, shortness of breath. PMH: PTSD, depression, hypothyroidism, chronic pain, chronic bradycardia, deja danlos, hypertension, history of breast cancer, questionable asthma Meds: Abilify, BuSpar, citalopram, hydrochlorothiazide, levothyroxine, telmisartan, terazosin Hospital Course Patient was admitted for further monitoring. Bactrim was changed to doxycycline and hctz was discontinued secondary to possibly contributing to hyponatremia. patient was experiencing generalized weakness with nausea and vomiting which was believed to be secondary to hyponatremia. CT scan of abdomen was performed due to abdominal distention and did not show any acute abnormalities. Patient started on Robaxin for muscle spasms with no relief. PT/OT worked with patient and deemed patient independent of abilities and was d/c from physical therapy. Patients hyponatremia resolved and was not longer experiencing any GI symptoms. Patient was stable for discharge home with instructions to follow up with PCP and yard manager. She was given 3 more days of antibiotics. Home Meds Active Scripts Doxycycline* (Vibramycin*) 100 Mg Tab, 100 MG PO BID for 3 Days, #6 TAB Prov:CALEB LARA MD 07/25/17 Buspirone Hcl* (Buspar*) 5 Mg Tab, 15 MG PO BID, #60 TAB Prov:MARYJO SEWELL MD 04/06/16 Reported Medications Terazosin Hcl* (Terazosin Hcl*) 2 Mg Capsule, 2 MG PO BID, CAP 02/09/17 Telmisartan (Telmisartan) 80 Mg Tablet, 80 MG PO QPM, TAB 02/09/17 Diclofenac Sodium* (Diclofenac Sodium*) 50 Mg Tablet.dr, 50 MG PO BID, #60 TAB 02/09/17 Citalopram Hydrobromide* (Citalopram Hydrobromide*) 40 Mg Tablet, 40 MG PO QAM, #30 TAB 02/09/17 Aripiprazole* (Abilify*) 2 Mg Tablet, 2 MG PO QHS, #30 TAB 02/09/17 Levothyroxine Sodium* (Levoxyl*) 75 Mcg Tablet, 75 MCG PO QAM 12/28/13 Hydrochlorothiazide* (Hydrochlorothiazide*) 25 Mg Tab, 25 MG PO QAM, TAB 12/28/13 Follow-up Plan 1. Follow up with your Primary care physician in 1 week 2. Continue taking Doxycycline twice a day for 3 more days (next dose tomorrow 07/26) 3. Follow up with your Professor [employer] regarding the abscess 4. If experiencing any worsening of your symptoms, return to the emergency department Primary Care Provider Asa Sharma Time spent on discharge: > 30 minutes Pending Labs Laboratory Tests Test 07/24/17 14:08 07/25/17 04:48 07/25/17 05:00 Sodium Level 131mmol/L (135-144) 136mmol/L (135-144) Potassium Level 4.9mmol/L (3.5-5.1) 4.7mmol/L (3.5-5.1) Chloride Level 99mmol/L (97-110) 104mmol/L (97-110) Carbon Dioxide Level 27mmol/L (21-31) 24mmol/L (21-31) Anion Gap 10 (8-16) 13 (8-16) Blood Urea Nitrogen 7mg/dl (7-20) 9mg/dl (7-20) Creatinine 0.90mg/dl (0.44-1.00) 0.83mg/dl (0.44-1.00) Glucose Level 80mg/dl (70-220) 85mg/dl (70-220) Calcium Level 8.9mg/dl (8.4-10.2) 8.6mg/dl (8.4-10.2) Phosphorus Level 2.8mg/dl (2.5-4.9) 2.8mg/dl (2.5-4.9) Albumin 3.3g/dl (3.3-4.9) Magnesium Level 2.2mg/dl (1.7-2.5) White Blood Count 3.310^3/ul (4.8-10.8) Red Blood Count 3.6810^6/ul (4.20-5.40) Hemoglobin 11.2g/dl (12.0-16.0) Hematocrit 32.4% (37.0-47.0) Mean Corpuscular Volume 88.0fl (82.0-101.0) Mean Corpuscular Hemoglobin 30.4pg (29.0-33.0) Mean Corpuscular Hemoglobin Concent 34.6g/dl (32.0-37.0) Red Cell Distribution Width 12.1% (11.5-14.5) Platelet Count 10781^3/UL (140-415) Mean Platelet Volume 9.6fl (7.4-10.4) Neutrophils % 57.4% (39.0-77.0) Lymphocytes % 26.4% (15.0-51.0) Monocytes % 11.7% (0.0-11.0) Eosinophils % 3.6% (0.0-7.0) Basophils % 0.6% (0.0-2.0) Nucleated Red Blood Cells % 0.0/100WBC (0.0-0.0) Neutrophils # 1.910^3/ul (1.6-7.5) Lymphocytes # 0.910^3/ul (0.8-2.9) Monocytes # 0.410^3/ul (0.3-0.9) Eosinophils # 0.110^3/ul (0.0-0.5) Basophils # 0.010^3/ul (0.0-0.1) Nucleated Red Blood Cells # 0.010^3/ul (0.0-0.0) CALEB LARA MD Jul 25, 2017 12:07
--- NOTE | 2017-07-25 12:07 | PDOCDIS ---
Discharge Instructions DIAGNOSIS Discharge Diagnosis Hyponatremia Weakness Muscle soreness/strain- improved Nausea vomiting- resolved labial abscess Abdominal distention PTSD and depression Hypertension CONDITION Patient Condition: Good HOME CARE INSTRUCTIONS: Diet Instructions: Low Fat /CholesterolSpecial Diet: LOW FAT, LOW CHOL ACTIVITY: Activity Restrictions: No Restrictions FOLLOW UP/APPOINTMENTS Follow-up Plan 1. Follow up with your Primary care physician in 1 week 2. Continue taking Doxycycline twice a day for 3 more days (next dose tomorrow 07/26) 3. Follow up with your [employer] regarding the abscess 4. If experiencing any worsening of your symptoms, return to the emergency department CALEB LARA MD Jul 25, 2017 12:07
[2017-07-25 15:35] VITALS: BP 105/59; RESP 18
== END 2017-07-25 17:40 | disposition home or self-care (01) | DRG 641 ==
LOC: MS1 14:56 → INTOOBSV 14:56 → MS1 16:15 → OBSVTOIN 07-24 10:08
PROVIDERS: ADMIT Internal Medicine; ATTEND Internal Medicine
DX: E87.1 Hypo-osmolality and hyponatremia (principal); I10 Essential (primary) hypertension; N76.4 Abscess of vulva; E03.9 Hypothyroidism, unspecified; R53.1 Weakness; R11.2 Nausea with vomiting, unspecified; R14.0 Abdominal distension (gaseous); F43.10 Post-traumatic stress disorder, unspecified; F32.9 Major depressive disorder, single episode, unspecified; S76.919A Strain of unspecified muscles, fascia and tendons at thigh level, unspecified thigh, initial encounter; X58.XXXA Exposure to other specified factors, initial encounter
CPT/HCPCS: 71010; 74176; 80048; 80053; 80069; 80307; 81003; 82436; 82728; 83540; 83735; 83930; 83935; 84100; 84133; 84155; 84300; 85025; 87040; 97116; 97161; G0378; J0696; J2270; J3475; J7030

== ENCOUNTER 2017-10-03 07:49 | Emergency (ER) | END 2017-10-03 10:27 | disposition home or self-care (01) ==